=== PATIENT | male | born 1950 | race Caucasian/White ===

== ENCOUNTER 2024-11-20 21:10 | Inpatient (IN) | payer BC, MEDICAID, MEDICARE ==
[~2024-11-20] VITALS: Ht 172.7 cm; Wt 133.8 kg
[2024-11-20 23:31] LABS: BASOPHILS % 0.2 % (0.0-2.0); CHLORIDE 105 mEq/L (98-107); EOSINOPHILS % 0.5 % (0.0-5.0); HEMOGLOBIN. 13.8 g/dL (14.0-18.0); LYMPHOCYTES % 27.7 % (20.0-50.0); MEAN CORPUSCULAR HEMOGLOBIN 32.2 pg (28.0-32.0); MEAN CORPUSCULAR HGB CONC 33.5 g/dL (31.0-37.0); MEAN CORPUSCULAR VOLUME 96.2 fL (80.0-94.0); MEAN PLATELET VOLUME 8.3 fl (7.4-10.4); MONOCYTES % 3.9 % (2.0-8.0); NEUTROPHILS % 67.7 % (40.0-76.0); PLATELET 230 x1000/uL (130-400); POTASSIUM 3.7 mEq/L (3.5-5.1); RED BLOOD CELL COUNT 4.27 mill/uL (4.7-6.1); RED CELL DISTRIBUTION WIDTH 13.5 % (11.6-14.6); SODIUM 141 mEq/L (136-145); WHITE BLOOD COUNT 7.6 x1000/uL (4.5-11.0)
[2024-11-20 23:32] LABS: CALCIUM 9.4 mg/dL (8.7-10.4); CARBON DIOXIDE 24 mEq/L (21-32)
[2024-11-20 23:35] LABS: PARTIAL THROMBOPLASTIN TIME 27.8 sec (23.4-31.0); PROTHROMBIN TIME 10.9 sec (9.6-11.0)
[2024-11-20 23:37] LABS: CREATININE 1.1 mg/dL (0.6-1.3); GLUCOSE 130 mg/dL (70-105); UREA NITROGEN BLOOD 16 mg/dL (9-23)
[2024-11-20 23:38] LABS: TROPONIN I HIGH SENSITIVITY 20 ng/L (3.0-53)
[2024-11-20 23:46] LABS: ETHANOL BLOOD 279 mg/dL (<10)
[2024-11-21] MEDS ORDERED: POTASSIUM CHLORIDE 20MEQ TABLET SR PO PRN (01:15)
[2024-11-21] MEDS ORDERED: ONDANSETRON HCL 4MG/2ML INJ IV PRN (01:15)
[2024-11-21] MEDS ORDERED: MAGNESIUM/ALUMINUM HYDROXIDE/SIMETHICONE 30ML UDC PO PRN (01:15)
[2024-11-21] MEDS ORDERED: CHLORDIAZEPOXIDE 25MG CAPSULE PO PRN ×2 (01:15)
[2024-11-21] MEDS ORDERED: LORAZEPAM 1MG TABLET PO PRN ×3 (01:15)
[2024-11-21] MEDS ORDERED: IPRATROPIUM/ALBUTEROL 0.5-3(2.5)MG/3ML NEB HHN PRN (01:15)
[2024-11-21] MEDS ORDERED: ACETAMINOPHEN 325MG TABLET PO PRN (01:15)
[2024-11-21] MEDS ORDERED: LORAZEPAM 2MG/ML INJ IV PRN ×2 (01:15→14:15)
[2024-11-21 03:25] VITALS: BP 110/53; PULSE 60; RESP 20; TEMP 36.6404
[2024-11-21] MEDS: CHLORDIAZEPOXIDE 25MG CAPSULE PO PRN (04:44)
[2024-11-21 08:00] VITALS: BP 107/53; PULSE 65; RESP 18; TEMP 36.9474; O2SAT 92
[2024-11-21] MEDS: ENOXAPARIN 40MG/0.4ML SYR SUBCUT SCH (08:08)
[2024-11-21] MEDS: MULTIVITAMINS,THER W-MINERALS TABLET PO SCH (08:08)
[2024-11-21] MEDS: FOLIC ACID 1MG TABLET PO SCH (08:08)
[2024-11-21 10:42] LABS: CLARITY URINE CLEAR (CLEAR); COLOR URINE YELLOW (YELLOW); GLUCOSE URINE NEGATIVE (NEGATIVE); KETONES URINE NEGATIVE (NEGATIVE); LEUKOCYTE ESTERASE URINE NEGATIVE (NEGATIVE); NITRITE URINE NEGATIVE (NEGATIVE); OCCULT BLOOD URINE NEGATIVE (NEGATIVE); PH URINE 5.5 (4.5-8.0); PROTEIN URINE NEGATIVE (NEGATIVE); SPECIFIC GRAVITY URINE 1.006 (1.005-1.030); UROBILINOGEN URINE 0.2 E.U./dL (0.2-1.0)
[2024-11-21 11:00] LABS: *AMPHETAMINES SCREEN URINE NEGATIVE (NEGATIVE); *BARBITURATES SCREEN URINE NEGATIVE (NEGATIVE); *BENZODIAZEPINES SCREEN URINE NEGATIVE (NEGATIVE); *COCAINE SCREEN URINE NEGATIVE (NEGATIVE); METHADONE URINE SCREEN NEGATIVE (NEGATIVE); OPIATES URINE SCREEN NEGATIVE (NEGATIVE); PHENCYCLIDINE URINE SCREEN NEGATIVE (NEGATIVE)
[2024-11-21 11:01] LABS: CANNABINOID URINE SCREEN NEGATIVE (NEGATIVE); ECSTASY MDMA SCREEN URINE NEGATIVE (NEGATIVE)
[2024-11-21 12:00] VITALS: BP 139/78; PULSE 80; RESP 22; TEMP 37.00296; O2SAT 100
[2024-11-21 16:00] VITALS: BP 179/68; PULSE 89; RESP 18; TEMP 35.66952; O2SAT 100
[2024-11-21] MEDS: CLONIDINE 0.1MG TABLET PO PRN (16:17)
[2024-11-21 17:30] VITALS: BP 161/57; RESP 18; O2SAT 99
[2024-11-21 20:00] VITALS: BP 140/66; PULSE 62; RESP 20; TEMP 37.11408; O2SAT 99
[2024-11-21] MEDS: CHLORDIAZEPOXIDE 25MG CAPSULE PO SCH (21:40)
[2024-11-22] VITALS: BP 122/66; PULSE 55; RESP 18; TEMP 37.61412; O2SAT 96
[2024-11-22 04:00] VITALS: BP 127/64; PULSE 60; RESP 20; TEMP 36.00288; O2SAT 97
[2024-11-22 08:00] VITALS: BP 148/89; PULSE 99; RESP 20; TEMP 36.44736; O2SAT 100
[2024-11-22 08:17] LABS: CHLORIDE 105 mEq/L (98-107); POTASSIUM 3.5 mEq/L (3.5-5.1); SODIUM 141 mEq/L (136-145)
[2024-11-22 08:18] LABS: CALCIUM 9.3 mg/dL (8.7-10.4); CARBON DIOXIDE 27 mEq/L (21-32)
[2024-11-22 08:24] LABS: ALANINE AMINOTRANSFERASE 8 IU/L (10-49); GLUCOSE 78 mg/dL (70-105); UREA NITROGEN BLOOD 19 mg/dL (9-23)
[2024-11-22 08:25] LABS: ALBUMIN 3.8 g/dL (3.2-4.8); ASPARTATE AMINOTRANSFERASE 13 IU/L (<34); TROPONIN I HIGH SENSITIVITY 18 ng/L (3.0-53)
[2024-11-22 08:26] LABS: BILIRUBIN DIRECT 0.3 mg/dL (<=3.0); BILIRUBIN TOTAL 0.8 mg/dL (0.1-1.0); PHOSPHORUS 3.4 mg/dL (2.5-4.9); PROTEIN TOTAL 6.6 g/dL (6.0-8.3)
[2024-11-22 08:58] LABS: BASOPHILS % 0.5 % (0.0-2.0); EOSINOPHILS % 2.9 % (0.0-5.0); HEMATOCRIT. 40.1 % (42.0-52.0); HEMOGLOBIN. 13.4 g/dL (14.0-18.0); LYMPHOCYTES % 35.7 % (20.0-50.0); MEAN CORPUSCULAR HEMOGLOBIN 32.4 pg (28.0-32.0); MEAN CORPUSCULAR HGB CONC 33.5 g/dL (31.0-37.0); MEAN CORPUSCULAR VOLUME 96.7 fL (80.0-94.0); MEAN PLATELET VOLUME 8.8 fl (7.4-10.4); MONOCYTES % 8.4 % (2.0-8.0); NEUTROPHILS % 52.5 % (40.0-76.0); PLATELET 207 x1000/uL (130-400); RED BLOOD CELL COUNT 4.15 mill/uL (4.7-6.1); RED CELL DISTRIBUTION WIDTH 13.7 % (11.6-14.6)
[2024-11-22 12:00] VITALS: BP 137/89; PULSE 89; RESP 16; TEMP 36.6696; O2SAT 97
[2024-11-22 16:00] VITALS: BP 155/50; PULSE 55; RESP 22; TEMP 36.89184; O2SAT 100
[2024-11-22 20:00] VITALS: BP 128/61; PULSE 55; RESP 19; TEMP 36.3918; O2SAT 100
[2024-11-23] VITALS: BP 136/67; PULSE 50; RESP 19; TEMP 36.16956; O2SAT 98
[2024-11-23 04:00] VITALS: BP 140/70; PULSE 50; PULSE 60; RESP 20; TEMP 36.3918; O2SAT 98
[2024-11-23 06:53] LABS: CHLORIDE 106 mEq/L (98-107); POTASSIUM 3.7 mEq/L (3.5-5.1); SODIUM 141 mEq/L (136-145)
[2024-11-23 06:55] LABS: CARBON DIOXIDE 23 mEq/L (21-32)
[2024-11-23 06:56] LABS: CALCIUM 9.1 mg/dL (8.7-10.4)
[2024-11-23 07:00] LABS: UREA NITROGEN BLOOD 22 mg/dL (9-23)
[2024-11-23 07:01] LABS: CREATININE 0.9 mg/dL (0.6-1.3); GLUCOSE 87 mg/dL (70-105)
[2024-11-23 07:02] LABS: ALANINE AMINOTRANSFERASE 8 IU/L (10-49); ALBUMIN 3.9 g/dL (3.2-4.8); ASPARTATE AMINOTRANSFERASE 13 IU/L (<34)
[2024-11-23 07:03] LABS: BILIRUBIN DIRECT 0.2 mg/dL (<=3.0); BILIRUBIN TOTAL 0.6 mg/dL (0.1-1.0); PHOSPHORUS 3.6 mg/dL (2.5-4.9); PROTEIN TOTAL 6.9 g/dL (6.0-8.3)
[2024-11-23 07:25] LABS: BASOPHILS % 0.8 % (0.0-2.0); EOSINOPHILS % 4.5 % (0.0-5.0); HEMATOCRIT. 39.6 % (42.0-52.0); HEMOGLOBIN. 13.4 g/dL (14.0-18.0); MEAN CORPUSCULAR HEMOGLOBIN 32.9 pg (28.0-32.0); MEAN CORPUSCULAR HGB CONC 33.9 g/dL (31.0-37.0); MEAN PLATELET VOLUME 8.5 fl (7.4-10.4); MONOCYTES % 7.1 % (2.0-8.0); NEUTROPHILS % 52.6 % (40.0-76.0); PLATELET 201 x1000/uL (130-400); RED BLOOD CELL COUNT 4.08 mill/uL (4.7-6.1); RED CELL DISTRIBUTION WIDTH 13.6 % (11.6-14.6); WHITE BLOOD COUNT 5.8 x1000/uL (4.5-11.0)
[2024-11-23 08:00] VITALS: BP 158/82; PULSE 52; RESP 20; TEMP 37.00296; O2SAT 100
[2024-11-23] MEDS: DOCUSATE SODIUM 100MG CAPSULE PO PRN (09:44)
[2024-11-23] MEDS: THIAMINE HCL 100MG TABLET PO SCH (09:44)
[2024-11-23 16:00] VITALS: BP 167/90; PULSE 62; RESP 20; TEMP 36.61404; O2SAT 99
[2024-11-24 08:00] VITALS: BP 110/57; PULSE 53; RESP 20; TEMP 36.44736; O2SAT 100
[2024-11-24 08:48] LABS: CHLORIDE 104 mEq/L (98-107); POTASSIUM 3.9 mEq/L (3.5-5.1); SODIUM 141 mEq/L (136-145)
[2024-11-24 08:49] LABS: CALCIUM 9.4 mg/dL (8.7-10.4); CARBON DIOXIDE 26 mEq/L (21-32)
[2024-11-24 08:54] LABS: CREATININE 1.1 mg/dL (0.6-1.3); GLUCOSE 83 mg/dL (70-105); TRIGLYCERIDE 212 mg/dL (0-150); UREA NITROGEN BLOOD 22 mg/dL (9-23)
[2024-11-24 08:55] LABS: LDL CHOLESTEROL 52 mg/dL (5-100)
[2024-11-24 08:56] LABS: CHOLESTEROL 118 mg/dL (<200); HDL CHOLESTEROL 41 mg/dL (>55)
[2024-11-24 12:00] VITALS: BP 118/76; PULSE 60; RESP 18; TEMP 36.61404; O2SAT 95
[2024-11-24 16:00] VITALS: BP 145/60; PULSE 57; RESP 18; TEMP 36.89184; O2SAT 98
[2024-11-24] MEDS: SERTRALINE HCL 25MG TABLET PO SCH (16:05)
[2024-11-24] MEDS: HYDROCODONE/ACETAMINOPHEN 5/325MG TABLET PO PRN (16:06)
[2024-11-24 20:00] VITALS: BP 125/69; PULSE 76; RESP 18; TEMP 36.61404; O2SAT 76
[2024-11-24] MEDS: TRAZODONE HCL 50MG TABLET PO SCH (21:15)
[2024-11-25] VITALS: BP 119/61; PULSE 61; RESP 18; TEMP 36.72516; O2SAT 99
[2024-11-25 04:00] VITALS: BP 116/57; PULSE 56; RESP 20; TEMP 36.55848; O2SAT 98
[2024-11-25 08:21] VITALS: BP 123/57; PULSE 53; RESP 18; TEMP 37.05852; O2SAT 94
[2024-11-25 11:59] VITALS: BP 123/64; PULSE 56; RESP 18; TEMP 36.72516; O2SAT 96
[2024-11-25] MEDS ORDERED: TRAZ-251 PO (13:59)
[2024-11-25] MEDS ORDERED: SERT25TA74 PO (13:59)
[2024-11-25 15:40] VITALS: BP 123/64; PULSE 56; TEMP 98.1; O2SAT 97
[2024-11-25 15:57] VITALS: BP 122/64; PULSE 55; RESP 19; TEMP 36.50292; O2SAT 98
== END 2024-11-25 17:00 | disposition home or self-care (01) | DRG 917 ==
LOC: ER 21:10 → 7WST 23:55
PROVIDERS: ADMIT Family Medicine Adult Medicine; ATTEND Family Medicine Adult Medicine
DX: T51.0X1A Toxic effect of ethanol, accidental (unintentional), initial encounter (principal); G92.8 Other toxic encephalopathy; E11.9 Type 2 diabetes mellitus without complications; E78.5 Hyperlipidemia, unspecified; F32.9 Major depressive disorder, single episode, unspecified; F41.9 Anxiety disorder, unspecified; I10 Essential (primary) hypertension; F43.10 Post-traumatic stress disorder, unspecified; Z96.659 Presence of unspecified artificial knee joint; Z86.73 Personal history of transient ischemic attack (TIA), and cerebral infarction without residual deficits; Z63.4 Disappearance and death of family member; Y90.8 Blood alcohol level of 240 mg/100 ml or more; X58.XXXA Exposure to other specified factors, initial encounter; Y93.89 Activity, other specified; Y92.89 Other specified places as the place of occurrence of the external cause; Y99.8 Other external cause status
CPT/HCPCS: 36415; 71045; 80048; 80061; 80076; 80305; 80320; 81003; 83036; 83735; 83880; 84100; 84484; 85025; 93005; 93970; 97161; 99285; J1650; G0480

== ENCOUNTER 2025-10-07 08:32 | Emergency (ER) | payer BC, MEDICAID ==
[~2025-10-07] VITALS: Ht 172.7 cm; Wt 100.0 kg
[~2025-10-07 08:32] MED LIST: SERT25TA74 PO; TRAZ-251 PO
[2025-10-07 08:43] VITALS: TEMP 36.7; O2SAT 100
[2025-10-07] MEDS ORDERED: DIPH25CA83 MT (09:23)
[2025-10-07] MEDS ORDERED: P50 MT (09:23)
[2025-10-07] MEDS ORDERED: FAMO-135 MT (09:23)
[2025-10-07] MEDS: FAMOTIDINE 20MG TABLET PO ONE (09:36)
[2025-10-07] MEDS: DIPHENHYDRAMINE 25MG CAPSULE PO ONE (09:36)
[2025-10-07] MEDS: METHYLPREDNISOLONE SOD SUCC 125MG/2ML (ACT-O-VIAL) IM ONE (09:36)
[2025-10-07 10:18] VITALS: BP 142/71; PULSE 60; RESP 16; O2SAT 97
== END 2025-10-07 10:25 | disposition home or self-care (01) ==
LOC: ER 09:21
DX: L50.9 Urticaria, unspecified (principal); E11.9 Type 2 diabetes mellitus without complications; F10.20 Alcohol dependence, uncomplicated; Z79.899 Other long term (current) drug therapy; Z86.73 Personal history of transient ischemic attack (TIA), and cerebral infarction without residual deficits; Y90.9 Presence of alcohol in blood, level not specified
CPT/HCPCS: 99283; 96372; J2919; Q0163